=== PATIENT | female | born 1930 | race Caucasian/White ===

== ENCOUNTER → 2017-03-26 | Outpatient (CLI) | payer BC, OTHER | LOC: FIMAGING 10:20 | PROVIDERS: ATTEND Internal Medicine Cardiovascular Disease | DX: R91.1 Solitary pulmonary nodule (principal); J40 Bronchitis, not specified as acute or chronic; I51.7 Cardiomegaly; I48.91 Unspecified atrial fibrillation ==

== ENCOUNTER 2017-04-20 14:37 | Emergency (ER) | payer BC ==
[2017-04-20 14:49] VITALS: RESP 16
--- NOTE | 2017-04-20 15:58 | EDPHY ---
H & P Stated Complaint: fill, head lac Time Seen by Provider: 04/20/17 15:34 HPI/ROS: CHIEF COMPLAINT: Mechanical fall, anticoagulated, scalp contusion, right ankle pain HISTORY OF PRESENT ILLNESS: The patient presents to the ED after mechanical fall. She is anticoagulated for atrial fibrillation. She fell backwards striking her occiput. The patient denies loss of consciousness. She has no complaints of headache. The patient did have bleeding from a scalp hematoma. The patient does complain of some lateral right ankle pain. The patient denies any abdominal pain, back pain, chest pain, difficulty breathing, numbness, weakness, antecedent palpitations or shortness of breath. REVIEW OF SYSTEMS: A comprehensive 10 point review of systems is otherwise negative aside from elements mentioned in the history of present illness. Source: Patient Exam Limitations: No limitations - Personal History Current Tetanus/Diphtheria Vaccine: Yes Current Tetanus Diphtheria and Acellular Pertussis (TDAP): Yes - Medical/Surgical History Hx Asthma: No Hx Chronic Respiratory Disease: No Hx Diabetes: No Hx Cardiac Disease: Yes Hx Renal Disease: No Hx Cirrhosis: No Hx Alcoholism: No Hx HIV/AIDS: No Hx Splenectomy or Spleen Trauma: No Other PMH: afib/hysterectomy, hypothyrooid, htn - Social History Smoking Status: Never smoked - Physical Exam Exam: General Appearance: Alert, no distress Head: Large occipital scalp hematoma, multiple superficial abrasions, no suturable laceration Eyes: Pupils equal, round, reactive ENT, Mouth: No hemotympanum, no oral trauma Neck: Nontender, trachea midline Respiratory: No chest wall tender, subcutaneous air, lungs clear bilaterally Cardiovascular: Regular rate and rhythm Abdomen: Abdomen is soft and nontender, pelvis stable Skin: No lacerations, No abrasion Back: No midline T/L/S pain Extremities: Tenderness to palpation over the right lateral malleolus Neurological: A&Ox3, normal motor function, normal sensory exam Constitutional: Initial Vital Signs Temperature (C) 36.2 C 04/20/17 14:46 Heart Rate 122 H 04/20/17 14:46 Respiratory Rate 16 04/20/17 14:46 Blood Pressure 147/102 H 04/20/17 14:46 O2 Sat (%) 96 04/20/17 14:46 O2 Delivery Mode Room Air Allergies/Adverse Reactions: clindamycin Allergy (Severe, Verified 04/20/17 14:45) Abd pain, Diarrhea Penicillins Allergy (Severe, Verified 04/20/17 14:45) Hives Home Medications: Medication Instructions Recorded C/E/Zn/Cu/OM3/DHA/EPA/LUT/ZEAX 2 each PO BID 07/08/11 [Preservision Softgel (OTC)] Dabigatran Etexilate Mesyl 150 mg PO BID 07/08/11 [Pradaxa 150 MG (RX)] Levothyroxine [Synthroid 112 mcg 112 mcg PO DAILY06 07/08/11 (RX)] Amiodarone HCl 10/25/15 Medical Decision Making - Diagnostics Imaging Results: Imaging Impressions Head CT 04/20/17 15:36 Impression: 1. Right parietal scalp hematoma. 2. No acute intracranial hemorrhage or fracture. 3. Mild ethmoid and maxillary sinus disease. Findings discussed with Emergency Department physician, Rishabh Cole M.D. , on April 20, 2017 at 1607. Ankle X-Ray 04/20/17 15:58 Impression: Oblique nondisplaced distal right fibular fracture just above the ankle joint. ED Course/Re-evaluation: The patient presents to the ED for evaluation of head injury and a right ankle injury after mechanical fall earlier today. The patient is anticoagulated with Pradaxa for atrial fibrillation. She had a large nonsuturable scalp hematoma. The patient was taken for noncontrast head CT scan which demonstrated no evidence of intracranial hemorrhage or fracture. The patient is noted to have a minimally displaced distal fibular fracture. The patient was placed in a Orozco boot and given crutches. The patient will be referred to our on-call orthopedic surgeon Dr. Anthony. The patient is discharged home with instructions to follow-up with her primary care provider as scheduled. She should return to the ED for severe headache, vomiting or other concerns. The patient is given customary ankle fracture aftercare instructions. Differential Diagnosis: Differential diagnosis considered includes intracranial hemorrhage, skull fracture, concussion, ankle fracture - Data Points Laboratory Results: Laboratory Results 04/20/17 16:35 04/20/17 16:35 04/20/17 04/20/17 16:35 16:35 WBC REJ RBC Not Reported Hgb Not Reported Hct Not Reported MCV Not Reported MCH Not Reported MCHC Not Reported RDW Not Reported Plt Count Not Reported MPV Not Reported Neut % (Auto) Not Reported Lymph % (Auto) Not Reported [place] % (Auto) Not Reported Eos % (Auto) Not Reported Baso % (Auto) Not Reported Nucleat RBC Rel Count Not Reported Absolute Neuts (auto) Not Reported Absolute Lymphs (auto) Not Reported Absolute Monos (auto) Not Reported Absolute Eos (auto) Not Reported Absolute Basos (auto) Not Reported Absolute Nucleated RBC Not Reported Immature Gran % Not Reported Immature Gran # Not Reported Sodium 138 mEq/L mEq/L (135-145) Potassium 4.9 mEq/L mEq/L (3.5-5.2) Chloride 105 mEq/L mEq/L (97-110) Carbon Dioxide 21 mEq/l L mEq/l (22-31) Anion Gap 12 mEq/L mEq/L (8-16) BUN 22 mg/dL mg/dL (7-23) Creatinine 0.9 mg/dL mg/dL (0.6-1.0) Estimated GFR 60 Glucose 114 mg/dL H mg/dL (70-100) Calcium 9.2 mg/dL mg/dL (8.5-10.4) Departure - Departure Disposition: Home, Routine, Self-Care Clinical Impression: Closed right ankle fracture, Scalp contusion, Scalp hematoma Condition: Good Instructions: Hematoma (ED) Additional Instructions: 1. Please apply ice to area of swelling on the back of your skull. 2. Your CT scan demonstrates no evidence of an intracranial hemorrhage or skull fracture. 3. You do have a nondisplaced ankle fracture. Please wear Orozco boot and avoid putting weight on the extremity until seen by Orthopedic surgery. Please contact our on-call orthopedic surgeon Dr. Anthony to schedule a follow-up visit. 4. Tylenol as needed for pain Referrals: Emely Aguilar MD [Primary Care Provider] - As per Instructions
[2017-04-20 17:02] VITALS: BP 135/45; PULSE 88; TEMP 97.9; O2SAT 98
== END 2017-04-20 17:08 | disposition home or self-care (01) ==
DX: S82.434A Nondisplaced oblique fracture of shaft of right fibula, initial encounter for closed fracture (principal); S00.03XA Contusion of scalp, initial encounter; I10 Essential (primary) hypertension; W01.198A Fall on same level from slipping, tripping and stumbling with subsequent striking against other object, initial encounter
CPT/HCPCS: L4386

== ENCOUNTER → 2017-08-04 | Day surgery (SDC) | payer BC ==
[~2017-08-04] MED LIST: ATROPINE SULFATE 1 MG/10 ML SYR ONE; PROPOFOL 200 MG/20 ML VIAL ONE
--- NOTE | 2017-08-04 22:30 | CPIP ---
[f rep st] INVASIVE CARDIAC PROCEDURE DATE OF PROCEDURE: 08/04/2017 PROCEDURE: MAXIME-guided cardioversion. COMPLICATIONS: None. INDICATIONS: Atrial fibrillation. DESCRIPTION OF PROCEDURE: Anesthesia was provided by Dr. Steiner. Informed consent was obtained, n .p.o. status confirmed, time-out performed. We performed an uncomplicated MAXIME. There was no left at rial appendage thrombus. Left ventricular ejection fraction is 55% without regional wall motion abno rmality. Mild mitral regurgitation, mild tricuspid regurgitation, trace pulmonic insufficiency. We then proceeded with cardioversion. The patient received a single 200 joule synchronized shock whi ch converted her from atrial fibrillation to sinus rhythm. A 12-lead EKG is pending. CONCLUSIONS: 1. Successful MAXIME-guided cardioversion. 2. Continue Pradaxa and amiodarone for now. The patient wishes to discuss coming off the amiodarone with the EP Service. 3. The patient does have a chest x-ray that was recently performed with mention of a chest nodule. Followup chest CT was recommended. This should be followed up as an outpatient. 4. The patient currently stable. Results discussed with the patient and her daughter. /[id number]/MODL
--- NOTE | 2017-08-05 10:35 | CPEKG ---
Heart Rate: 50 RR Interval: 1200 P-R Interval: 196 QRSD Interval: 90 QT Interval: 468 QTC Interval: 427 P [place]: 73 QRS [place]: 16 T Wave [place]: 152 EKG Severity - ABNORMAL ECG - EKG Impression: SINUS RHYTHM EKG Impression: BORDERLINE R WAVE PROGRESSION, ANTERIOR LEADS EKG Impression: ABNORMAL T, CONSIDER ISCHEMIA, LATERAL LEADS EKG Impression: SINUS RHYTHM HAS BEEN REESTABLISHED Electronically Signed By: Akash Amanda 05-Aug-2017 11:42:06
--- NOTE | 2017-08-05 10:37 | CPEKG ---
Heart Rate: 110 RR Interval: 545 QRSD Interval: 90 QT Interval: 356 QTC Interval: 482 QRS [place]: 93 T Wave [place]: 83 EKG Severity - ABNORMAL ECG - EKG Impression: ATRIAL FIBRILLATION EKG Impression: RIGHT AXIS DEVIATION EKG Impression: LOW VOLTAGE IN FRONTAL LEADS EKG Impression: BORDERLINE R WAVE PROGRESSION, ANTERIOR LEADS EKG Impression: BORDERLINE T ABNORMALITIES, ANT-LAT LEADS EKG Impression: ATRIAL FIBRILLATION IS NEW IN COMPARISON TO PRIOR ECG FROM 2016 Electronically Signed By: Akash Amanda 05-Aug-2017 11:41:48
--- NOTE | 2017-08-05 14:21 | ECHO ---
[email or web address] [address] [address] Main: [phone] Fax: Transesophageal Echocardiography Name: WILLOW BEACH MR#: [id number] Study Date: 08/04/2017 Study Time: 01:26 PM Date of : 1930 Age: 86 year(s) Height: ( ) Weight: ( ) BSA: Gender: Female Examination: MAXIME Indication: pre cardioversion Image Quality: Adequate Contrast: Requested by: Rita Peterson Heart Rate: Rhythm: BP: / Procedure Staff Sail Maker: Tiffanie Araiza JOHN Reading Physician: Rita Peterson MD Requesting Provider: MAXIME Exam Details Conclusions: Normal global systolic LV function. An agitated saline study was performed and was negative for intracardiac shunting. Good color flow doppler in the left atrial appendage. No thrombus in left appendage. Mild mitral valve regurgitation is present. proceed with successful cardioversion Measurements: Chambers Valvular Assessment AV/MV Valvular Assessment TV/PV Normal Normal Normal Name Value Range Name Value Range Name Value Range Additional Measurements: Findings: Left Ventricle: Normal global systolic LV function. Left Atrium: An agitated saline study was performed and was negative for intracardiac shunting. Left Atrial Appendage: The left atrial appendage is unilobular. Good color flow doppler in the left atrial appendage. Normal PW-Doppler flow pattern. No thrombus in left appendage. Mitral Valve: Patient: WILLOW BEACH Study Date: 08/04/2017 Page 1 of 2 01:26 PM The mitral valve is normal in appearance and function. Mild mitral valve regurgitation is present. No mitral stenosis is present. Aortic Valve: The aortic valve is tri-leaflet. Trivial aortic valve regurgitation. Pulmonic Valve: The pulmonic valve is normal in appearance and function. Trivial pulmonic valve regurgitation. Pericardium: Trivial pericardial effusion. l1n (No Signature Object) Patient: WILLOW BEACH Study Date: 08/04/2017 Page 2 of 2 01:26 PM D:_[id number]
[2017-08-06 08:25] LABS: INR 1.62 (0.83-1.16); PROTIME(PATIENT) 19.4 SEC (12.0-15.0)
== END | disposition home or self-care (01) ==
LOC: FCATH 12:30
PROVIDERS: ATTEND Internal Medicine Cardiovascular Disease
PROC: 5A2204Z Restoration of Cardiac Rhythm, Single (ICD-10-PCS; principal; 2017-08-04)
PROC: B245ZZ4 Ultrasonography of Left Heart, Transesophageal (ICD-10-PCS; principal; 2017-08-04)
DX: I48.91 Unspecified atrial fibrillation (principal); I08.1 Rheumatic disorders of both mitral and tricuspid valves; Z79.01 Long term (current) use of anticoagulants
CPT/HCPCS: J0461; J2704

== ENCOUNTER 2017-08-24 18:04 | Emergency (ER) | payer BC ==
--- NOTE | 2017-08-24 18:39 | CPEKG ---
Heart Rate: 57 RR Interval: 1053 P-R Interval: 188 QRSD Interval: 92 QT Interval: 452 QTC Interval: 440 P [place]: 69 QRS [place]: -37 T Wave [place]: 86 EKG Severity - ABNORMAL ECG - EKG Impression: SINUS RHYTHM EKG Impression: LEFT AXIS DEVIATION EKG Impression: NONSPECIFIC T ABNORMALITIES, LATERAL LEADS Electronically Signed By: Pierce Cross 24-Aug-2017 21:25:47
--- NOTE | 2017-08-24 18:44 | EDPHY ---
HPI/HX/ROS/PE/MDM Narrative: CHIEF COMPLAINT: Hypertension, "sick" HPI: The patient is an 86 y/o female arriving with her friend complaining of vague sensation of being ill today and hypertension. She has a history of atrial fibrillation for which she takes Pradaxa and amiodarone and was cardioverted 2 weeks ago. She reports a long history of hypertension, but does not take any antihypertensives for this and believes her amiodarone treats her blood pressure. She has difficulty describing her current symptoms and says today "I just didn't feel good." She reports she feels tired. She checked her BP at home and found it 210 systolic and attributes her current symptoms to this. She denies chest pain, abdominal pain, dyspnea, vomiting, diarrhea, cough , recent illness, or recent trauma. She is unable to tell if she has gone back into atrial fibrillation at any point since the cardioversion. The patient is a poor historian. REVIEW OF SYSTEMS: Aside from elements discussed in the HPI, a comprehensive 10-point review of systems was reviewed and is negative. PMH: 1. Atrial fibrillation - Pradaxa, amiodarone, recent cardioversion 2 weeks ago 2. Hypertension - no medications 3. Degenerative disc disease 4. Hypothyroidism 5. Macular degeneration 6. Lumbar radiculopathy 7. Hysterectomy 8. CHF Prior medical records reviewed including [facility] note 08/03/17. No mention of why patient is not on an antihypertensive agent. SOCIAL HISTORY: Friend at bedside. Lives in [place]. . Retired. PHYSICAL EXAM: General:Patient is alert, in no acute distress. BP 204/93 during exam. ENT:Eyes are normal to inspection. ENT inspection normal. Neck: Normal inspection. Full range of motion. Respiratory:No respiratory distress. Breath sounds normal bilaterally. Cardiovascular: Regular rate and rhythm. Strong peripheral pulses. Normal cap refill. Abdomen:The abdomen is nontender to palpation. There are no peritoneal signs. Back: Normal to inspection. No tenderness to palpation. Skin: Normal color. No rash. Warm and dry. Extremities: Normal appearance. Full range of motion. Neuro: Oriented x3. Normal motor function. Normal sensory function. ED Course: This is an 86 y/o female with a history of atrial fibrillation who presents with the vague sensation of feeling "sick" and noticed her BP was elevated at 210 systolic today. History from patient is limited. Exam is unremarkable. Plan for IV, labs including troponin, EKG, chest x-ray. 1L IV NS ordered. The 12 lead EKG was interpreted by myself. Sinus mechanism. See hard copy and/ or "tracemaster" electronic copy for interpretation. Chest x-ray: CHF Labs unremarkable aside from mildly elevated BNP. Reassessed patient and discussed findings. Most recent BP is 174/68. Offered admission for further evaluation of her symptoms, but she declined. Plan for UA and discharge home if normal. MDM: This patient presents essentially with asymptomatic hypertension, slightly higher than her normal BP which is 160mmHG systolic per her. We performed an extensive workup which is negative. The patient is on amiodarone and no other anti-hypertensives so I am hesitant to add on additional medications here in the ED. I offered her admission to the hospital for further observation and BP control but she declines. I strongly advised her to follow-up with her PCP and business test analyst regarding her BP. - Data Points Imaging Results: Imaging Impressions Chest X-Ray 08/24/17 18:48 Impression: Findings consistent with congestive heart failure superimposed upon probable underlying airways disease. Imaging: I viewed and interpreted images myself Laboratory Results: Laboratory Results 08/24/17 19:32 08/24/17 19:32 08/24/17 08/24/17 08/24/17 21:00 19:39 19:32 WBC RBC Hgb Hct MCV MCH MCHC RDW Plt Count MPV Neut % (Auto) Lymph % (Auto) [place] % (Auto) Eos % (Auto) Baso % (Auto) Nucleat RBC Rel Count Absolute Neuts (auto) Absolute Lymphs (auto) Absolute Monos (auto) Absolute Eos (auto) Absolute Basos (auto) Absolute Nucleated RBC Immature Gran % Immature Gran # Sodium Potassium Chloride Carbon Dioxide Anion Gap BUN Creatinine Estimated GFR Glucose Calcium POC Troponin I 0.01 ng/mL ng/mL (0.00-0.08) NT-Pro-B Natriuret Pep 979 pg/mL H pg/mL (0-450) Urine Color PALE YELLOW Urine Appearance CLEAR Urine pH 6.0 (5.0-7.5) Ur Specific [place] 1.006 (1.002-1.030) Urine Protein NEGATIVE (NEGATIVE) Urine Ketones NEGATIVE (NEGATIVE) Urine Blood NEGATIVE (NEGATIVE) Urine Nitrate NEGATIVE (NEGATIVE) Urine Bilirubin NEGATIVE (NEGATIVE) Urine Urobilinogen NEGATIVE EU EU (0.2-1.0) Ur Leukocyte Esterase NEGATIVE (NEGATIVE) Urine Glucose NEGATIVE (NEGATIVE) 08/24/17 08/24/17 19:32 19:32 WBC 5.52 10^3/uL 10^3/uL (3.80-9.50) RBC 4.16 10^6/uL L 10^6/uL (4.18-5.33) Hgb 14.1 g/dL g/dL (12.6-16.3) Hct 41.3 % % (38.0-47.0) MCV 99.3 fL fL (81.5-99.8) MCH 33.9 pg pg (27.9-34.1) MCHC 34.1 g/dL g/dL (32.4-36.7) RDW 13.3 % % (11.5-15.2) Plt Count 153 10^3/uL 10^3/uL (150-400) MPV 10.7 fL fL (8.7-11.7) Neut % (Auto) 65.4 % % (39.3-74.2) Lymph % (Auto) 20.1 % % (15.0-45.0) [place] % (Auto) 11.8 % % (4.5-13.0) Eos % (Auto) 1.8 % % (0.6-7.6) Baso % (Auto) 0.7 % % (0.3-1.7) Nucleat RBC Rel Count 0.0 % % (0.0-0.2) Absolute Neuts (auto) 3.61 10^3/uL 10^3/uL (1.70-6.50) Absolute Lymphs (auto) 1.11 10^3/uL 10^3/uL (1.00-3.00) Absolute Monos (auto) 0.65 10^3/uL 10^3/uL (0.30-0.80) Absolute Eos (auto) 0.10 10^3/uL 10^3/uL (0.03-0.40) Absolute Basos (auto) 0.04 10^3/uL 10^3/uL (0.02-0.10) Absolute Nucleated RBC 0.00 10^3/uL 10^3/uL (0-0.01) Immature Gran % 0.2 % % (0.0-1.1) Immature Gran # 0.01 10^3/uL 10^3/uL (0.00-0.10) Sodium 137 mEq/L mEq/L (135-145) Potassium 4.2 mEq/L mEq/L (3.3-5.0) Chloride 103 mEq/L mEq/L (97-110) Carbon Dioxide 24 mEq/l mEq/l (22-31) Anion Gap 10 mEq/L mEq/L (8-16) BUN 18 mg/dL mg/dL (7-23) Creatinine 0.8 mg/dL mg/dL (0.6-1.0) Estimated GFR > 60 Glucose 94 mg/dL mg/dL (70-100) Calcium 9.0 mg/dL mg/dL (8.5-10.4) POC Troponin I NT-Pro-B Natriuret Pep Urine Color Urine Appearance Urine pH Ur Specific [place] Urine Protein Urine Ketones Urine Blood Urine Nitrate Urine Bilirubin Urine Urobilinogen Ur Leukocyte Esterase Urine Glucose Medications Given: Discontinued Medications Sodium Chloride (Ns) 1,000 mls @ 0 mls/hr IV EDNOW ONE; Wide Open PRN Reason: Protocol Stop: 08/24/17 18:49 Last Admin: 08/24/17 19:07 Dose: 1,000 mls Point of Care Test Results: Chemistry 08/24/17 19:39 POC Troponin I 0.01 ng/mL ng/mL (0.00-0.08) General Time Seen by Provider: 08/24/17 18:28 Initial Vital Signs: Initial Vital Signs Temperature (C) 36.3 C 08/24/17 18:06 Heart Rate 89 08/24/17 18:06 Respiratory Rate 18 08/24/17 18:06 Blood Pressure 187/101 H 08/24/17 18:06 O2 Sat (%) 96 08/24/17 18:06 O2 Delivery Mode Room Air Allergies/Adverse Reactions: clindamycin Allergy (Severe, Verified 08/24/17 18:06) Abd pain, Diarrhea Penicillins Allergy (Severe, Verified 08/24/17 18:06) Hives Home Medications: Medication Instructions Recorded C/E/Zn/Cu/OM3/DHA/EPA/LUT/ZEAX 2 each PO BID 05/15/12 [Preservision Softgel (OTC)] Dabigatran Etexilate Mesyl 150 mg PO BID 07/08/11 [Pradaxa 150 MG (RX)] Levothyroxine [Synthroid 112 mcg 112 mcg PO DAILY06 07/08/11 (RX)] Amiodarone HCl 10/25/15 Departure - Departure Disposition: Home, Routine, Self-Care Clinical Impression: Hypertension Qualifiers: Hypertension type: unspecified Qualified Code(s): I10 - Essential (primary) hypertension Condition: Good Instructions: Hypertension (ED) Additional Instructions: Follow up with your primary care provider tomorrow for reevaluation of your blood pressure and discussion of blood pressure medications. Return to the ED for worsening of condition. Referrals: Emely Aguilar MD [Primary Care Provider] - As per Instructions Report Scribed for: Pierce Cross Report Scribed by: Silvia Villalobos Date of Report: 08/24/17 Time of Report: 18:44 Physician Review and Approval Statement: Portions of this note were transcribed by an ED scribe. I personally performed the history, physical exam, and medical decision making; and confirm the accuracy of the information in the transcribed note.
[2017-08-24] MEDS ORDERED: NS 1,000 ML IV ONE (18:48)
[2017-08-24 19:53] LABS: PLATELET COUNT 153 10^3/uL (150-400)
[2017-08-24 22:13] VITALS: BP 183/74
== END 2017-08-24 22:10 | disposition home or self-care (01) ==
DX: I11.0 Hypertensive heart disease with heart failure (principal); I50.9 Heart failure, unspecified; E86.9 Volume depletion, unspecified
CPT/HCPCS: 84484-PO